=== PATIENT | male | born 1990 | race American Indian/Alaskan Native ===

== ENCOUNTER 2018-09-18 19:04 | Emergency (ER) | payer OTHER ==
[~2018-09-18] VITALS: Ht 180.3 cm; Wt 127.0 kg
[~2018-09-18 19:04] MED LIST: CYMBALTA20 MG PO; IBUPROFEN600 MG PO; LEVSIN0.125 MG PO; PERCOCET 7.5-31 EACH PO; PRILOSEC OTC20 MG PO; PRILOSEC20 MG PO; PROPRANOLOL HCL10 MG PO; PROTONIX40 MG PO; TRAZODONE HCL50 MG PO; XANAX0.5 MG PO; ZOFRAN ODT8 MG PO; ZOFRAN4 MG PO
== END 2018-09-19 00:21 | disposition home or self-care (01) ==
LOC: ED 19:04
DX: Z00.8 Encounter for other general examination (principal); F41.0 Panic disorder [episodic paroxysmal anxiety]; K21.9 Gastro-esophageal reflux disease without esophagitis; F32.9 Major depressive disorder, single episode, unspecified; Z88.8 Allergy status to other drugs, medicaments and biological substances; Z79.899 Other long term (current) drug therapy
CPT/HCPCS: 80053; 80176; 81001; 84443; 85025; 99283; G0480